=== PATIENT | female | born 1975 | race Caucasian/White ===

== ENCOUNTER 2021-02-17 19:29 | Inpatient (IN) | payer OTHER ==
[2021-02-17] MEDS ORDERED: SODIUM CHLORIDE 0.9% 500 ML INFUS.BAG IV ONE (20:58)
[2021-02-17] MEDS ORDERED: CEFEPIME HCL/D5W 1 GM/50 ML BAG IVPB ONE (20:58)
[2021-02-17] MEDS ORDERED: VANCOMYCIN 1 GM in D5W (PRE-DOCKED) 1,000 MG/250 ML IVPB ONE (20:58)
[2021-02-17 20:59] LABS: BASO % 0.5 % (0-2.0); EOS % 1.9 % (0-4.5); EPI CELLS >36 /uL (0-25.1); HEMATOCRIT 32.4 % (32.4-45.2); HYALINE CASTS 4 /uL (0-3.1); LYMPH % 41.1 % (8-40); MCH 30.3 pg (25.7-33.7); MEAN CELL VOLUME 89.2 fl (80-96); MEAN PLT VOLUME 8.9 fl (7.5-11.1); MONO % 11.1 % (3.8-10.2); NEUT % 45.4 % (42.8-82.8); PLATELET COUNT 294 10^3/uL (134-434); RBC 3.63 M/mm3 (3.60-5.2); RDW 13.8 % (11.6-15.6); URINE APPEARANCE CLEAR; URINE BACTERIA 191 /uL (0-1359); URINE BILIRUBIN NEGATIVE (NEGATIVE); URINE COLOR YELLOW; URINE GLUCOSE (UA) NEGATIVE (NEGATIVE); URINE KETONE NEGATIVE (NEGATIVE); URINE LEUK ESTERASE TRACE (NEGATIVE); URINE NITRITE NEGATIVE (NEGATIVE); URINE PROTEIN TRACE (NEGATIVE); URINE RBC 19 /uL (0-23.9); URINE WBC 61 /uL (0-25.8); WHITE BLOOD COUNT 5.3 K/mm3 (4.0-10.0)
[2021-02-17 21:11] LABS: CALCIUM 8.9 mg/dL (8.5-10.1)
[2021-02-17 21:12] LABS: ALBUMIN 3.2 g/dl (3.4-5.0); BLOOD UREA NITROGEN 15.3 mg/dL (7-18)
[2021-02-17 21:17] LABS: BILIRUBIN,TOTAL 0.2 mg/dL (0.2-1)
[2021-02-17] MEDS ORDERED: VANCOMYCIN 1 GRAM (PRE-DOCKED) 1,000 MG/250 ML BAG IVPB ONE (22:05)
[2021-02-17] MEDS ORDERED: CEFEPIME 1 GM/100 ML BAG IVPB ONE (22:05)
[2021-02-18] MEDS ORDERED: metroNIDAZOLE 250 MG TABLET PO ONE (00:49)
[2021-02-18] MEDS ORDERED: SODIUM CHLORIDE 1,000 ML IV SCH (01:30)
[2021-02-18] MEDS ORDERED: metroNIDAZOLE 250 MG TABLET ONE (02:38)
[2021-02-18 08:31] LABS: BASO % 0.4 % (0-2.0); EOS % 1.5 % (0-4.5); HEMATOCRIT 26.6 % (32.4-45.2); HEMOGLOBIN 9.1 GM/dL (10.7-15.3); LYMPH % 25.9 % (8-40); MCH 30.7 pg (25.7-33.7); MCHC 34.1 g/dl (32.0-36.0); MEAN CELL VOLUME 89.9 fl (80-96); MEAN PLT VOLUME 8.8 fl (7.5-11.1); MONO % 10.9 % (3.8-10.2); NEUT % 61.3 % (42.8-82.8); PLATELET COUNT 270 10^3/uL (134-434); RBC 2.96 M/mm3 (3.60-5.2); RDW 13.6 % (11.6-15.6); WHITE BLOOD COUNT 5.8 K/mm3 (4.0-10.0)
[2021-02-18 08:45] LABS: CALCIUM 8.2 mg/dL (8.5-10.1)
[2021-02-18 08:46] LABS: ALBUMIN 2.6 g/dl (3.4-5.0); BLOOD UREA NITROGEN 9.9 mg/dL (7-18)
[2021-02-18 08:50] LABS: TOT PROT 6.3 g/dl (6.4-8.2)
[2021-02-18 08:51] LABS: BILIRUBIN,TOTAL 0.4 mg/dL (0.2-1)
[2021-02-18 08:53] LABS: CREATININE 0.8 mg/dL (0.55-1.3)
[2021-02-18] MEDS ORDERED: ACETAMINOPHEN 325 MG TABLET (FP) PO PRN (11:09)
[2021-02-18] MEDS ORDERED: ACETAMINOPHEN 1000 MG/100 ML BAG IVPB PRN ×2 (11:09→16:34)
[2021-02-18] MEDS: CEFTRIAXONE 1 GM in DEXTROSE 5%-WATER - 50 ML IVPB SCH (12:00)
[2021-02-18] MEDS ORDERED: ACETAMINOPHEN INJECTION 100 ML IVPB ONE (12:05)
[2021-02-18] MEDS ORDERED: ENOXAPARIN NA (PORCINE) 40 MG/0.4 ML DISP.SYRIN SQ ONE (12:05)
[2021-02-18] MEDS ORDERED: CEFTRIAXONE 1 GM/50 ML BAG ONE (12:06)
[2021-02-18] MEDS: ENOXAPARIN NA (PORCINE) 40 MG/0.4 ML DISP.SYRIN SQ SCH (12:11)
[2021-02-18 15:52] VITALS: BMI 24.1
[2021-02-18] MEDS ORDERED: MELATONIN 5 MG TABLETS PO PRN (18:12)
[2021-02-18] MEDS: oxyCODONE HCL 5 MG TABLET PO PRN (21:16)
[2021-02-19] MEDS ORDERED: ACETAMINOPHEN 1000 MG/100 ML BAG IVPB PRN ×2 (08:58→12:51)
[2021-02-19] MEDS ORDERED: cefTRIAXone SODIUM 1 GM VIAL ONE (09:34)
[2021-02-19] MEDS ORDERED: DEXTROSE 5%-WATER - 50 ML IVPB ONE (09:35)
[2021-02-19 09:37] LABS: CALCIUM 8.8 mg/dL (8.5-10.1)
[2021-02-19 09:38] LABS: BLOOD UREA NITROGEN 8.1 mg/dL (7-18)
[2021-02-19 09:41] LABS: CREATININE 0.8 mg/dL (0.55-1.3)
[2021-02-19] MEDS: oxyCODONE HCL 5 MG TABLET PO PRN (09:42)
[2021-02-19 09:43] LABS: HEMOGLOBIN 10.3 GM/dL (10.7-15.3); MCH 30.9 pg (25.7-33.7); MCHC 34.4 g/dl (32.0-36.0); MEAN PLT VOLUME 8.8 fl (7.5-11.1); PLATELET COUNT 326 10^3/uL (134-434); RBC 3.33 M/mm3 (3.60-5.2); RDW 13.7 % (11.6-15.6); WHITE BLOOD COUNT 4.7 K/mm3 (4.0-10.0)
[2021-02-19] MEDS: ENOXAPARIN NA (PORCINE) 40 MG/0.4 ML DISP.SYRIN SQ SCH (09:44)
[2021-02-19] MEDS: CEFTRIAXONE 1 GM in DEXTROSE 5%-WATER - 50 ML IVPB SCH (09:45)
[2021-02-19] MEDS ORDERED: SODIUM CHLORIDE 1,000 ML IV SCH (11:30)
[2021-02-20 04:55] VITALS: PULSE 60
[2021-02-20 08:33] LABS: HEMATOCRIT 27.9 % (32.4-45.2); HEMOGLOBIN 9.5 GM/dL (10.7-15.3); MCH 30.4 pg (25.7-33.7); MEAN CELL VOLUME 89.4 fl (80-96); MEAN PLT VOLUME 8.3 fl (7.5-11.1); PLATELET COUNT 347 10^3/uL (134-434); RBC 3.12 M/mm3 (3.60-5.2); RDW 13.4 % (11.6-15.6); WHITE BLOOD COUNT 4.7 K/mm3 (4.0-10.0)
[2021-02-20 08:36] LABS: CALCIUM 8.6 mg/dL (8.5-10.1)
[2021-02-20 08:40] LABS: CREATININE 0.8 mg/dL (0.55-1.3)
[2021-02-20] MEDS ORDERED: DEXTROSE 5%-WATER - 50 ML IVPB ONE (09:53)
[2021-02-20] MEDS ORDERED: cefTRIAXone SODIUM 1 GM VIAL ONE (09:53)
[2021-02-20] MEDS: CEFTRIAXONE 1 GM in DEXTROSE 5%-WATER - 50 ML IVPB SCH (10:24)
[2021-02-20] MEDS: ENOXAPARIN NA (PORCINE) 40 MG/0.4 ML DISP.SYRIN SQ SCH (10:24)
[2021-02-20] MEDS ORDERED: ACETAMINOPHEN 325 MG TABLET (FP) PO PRN (14:17)
[2021-02-20] MEDS ORDERED: ACETAMINOPHEN 1000 MG/100 ML BAG IVPB PRN (14:23)
[2021-02-20 14:28] VITALS: BP 87/53; TEMP 98.2
== END 2021-02-20 18:16 | disposition home or self-care (01) | DRG 463 ==
LOC: JER 19:29 → JERBED 21:01 → J7W 02-18 13:39
PROVIDERS: ADMIT Internal Medicine; ATTEND Internal Medicine
DX: N39.0 Urinary tract infection, site not specified (principal); N12 Tubulo-interstitial nephritis, not specified as acute or chronic; B96.20 Unspecified Escherichia coli [E. coli] as the cause of diseases classified elsewhere; N76.0 Acute vaginitis; R51.9 Headache, unspecified
CPT/HCPCS: 36415; 71046-TC-FY; 74177-TC; 80048; 80053; 81003; 82962; 83605; 85025; 85027; 87040; 87086; 87186; 87491; 87591; 87661; 93005; 93010; 99285-25; C9803; J0131; U0003; U0005